=== PATIENT | female | born 1955 | race Caucasian/White ===

== ENCOUNTER 2019-11-25 07:42 | Day surgery (SDC) | payer OTHER, MEDICARE ==
[2019-11-23 12:56] VITALS: BMI 29.6
[~2019-11-25 07:42] MED LIST: LACTATED RINGERS 1,000 ML IV SCH; LIDOCAINE 1% (10MG/ML) FOR IV START INTRADERMA PRN
[2019-11-25 08:02] VITALS: TEMP 96.6
[2019-11-25 08:15] LABS: Glucose,Whole Blood 122 mg/dL (75-99)
[2019-11-25] MEDS ORDERED: PROPOFOL 10 MG/ML 20 ML VIAL IV ONE (08:25)
--- NOTE | 2019-11-25 08:25 | P.GSHP ---
History of Present Illness H&P Date: 11/25/19 CHIEF COMPLAINT: Colon screen HISTORY OF PRESENT ILLNESS: The patient is a 64-year-old female who presents for colon screen. Lower endoscopy was offered for further evaluation and management. PAST MEDICAL HISTORY: Please see list. PAST SURGICAL HISTORY: Please see list. MEDICATIONS: Please see list. ALLERGIES: Please see list. SOCIAL HISTORY: No illicit drug use FAMILY HISTORY: No reports of Crohn disease or ulcerative colitis. REVIEW OF ORGAN SYSTEMS: CONSTITUTIONAL: No reports of fevers or chills. PHYSICAL EXAM: VITAL SIGNS: Stable GENERAL: Well-developed pleasant in no acute distress. HEENT: No scleral icterus. Extraocular movements grossly intact. Moist buccal mucosa. NECK: Supple without lymphadenopathy. CHEST: Unlabored respirations. Equal bilateral excursions. CARDIOVASCULAR: Regular rate and rhythm. Distal 2+ pulses. ABDOMEN: Soft, nontender, nondistended. MUSCULOSKELETAL: No clubbing, cyanosis, or edema. ASSESSMENT: 1. Colon screen. PLAN: 1. Recommend proceeding with a lower endoscopy Past Medical History Past Medical History: Cancer, Diabetes Mellitus, GERD/Reflux, Hyperlipidemia, Hypertension, Thyroid Disorder Additional Past Medical History / Comment(s): hx. breast cancer 6 yrs. ago w/surgery & radiation, hx. colon polyps, History of Any Multi-Drug Resistant Organisms: None Reported Past Surgical History: Breast Surgery, Cholecystectomy, Tonsillectomy Additional Past Surgical History / Comment(s): left breast lumpectomy, cyst removed from throat, cataracts removed Past Anesthesia/Blood Transfusion Reactions: No Reported Reaction Smoking Status: Current every day smoker Medications and Allergies Home Medications Medication Instructions Recorded Confirmed Type Alendronate Sodium [Fosamax] 70 mg PO JONES 11/23/19 11/23/19 History Anastrozole [Arimidex] 1 mg PO DAILY 11/23/19 11/23/19 History Aspirin 81 mg PO DAILY 11/23/19 11/23/19 History Levothyroxine Sodium [Synthroid] 112 mcg PO DAILY 11/23/19 11/23/19 History Lisinopril-Hctz 10-12.5 mg 1 tab PO DAILY 11/23/19 11/23/19 History [Zestoretic 10-12.5] Multivitamins, Thera [Multivitamin 1 tab PO DAILY 11/23/19 11/23/19 History (formulary)] Omeprazole [PriLOSEC] 20 mg PO AC-BRKFST 11/23/19 11/23/19 History PARoxetine [Paxil] 20 mg PO DAILY 11/23/19 11/23/19 History Simvastatin [Zocor] 20 mg PO HS 11/23/19 11/23/19 History metFORMIN HCL [Glucophage] 500 mg PO BID 11/23/19 11/23/19 History Allergies Allergy/AdvReac Type Severity Reaction Status Date / Time No Known Allergies Allergy Verified 11/23/19 12:43 Surgical - Exam Vital Signs Temp Pulse Resp BP Pulse Ox 96.6 F L 71 16 149/67 94 L 11/25/19 07:59 11/25/19 07:59 11/25/19 07:59 11/25/19 07:59 11/25/19 07:59 Results - Labs Abnormal Lab Results - Last 24 Hours (Table) 11/25/19 Range/Units 08:09 POC Glucose (mg/dL) 122 H (75-99) mg/dL
[2019-11-25 09:07] VITALS: BP 138/79; PULSE 78; RESP 18
--- NOTE | 2019-11-25 09:20 | P.PCN ---
Date of Procedure: 11/25/19 Description of Procedure: PREOPERATIVE DIAGNOSIS: Personal history of colon polyps Colonoscopy screening POSTOPERATIVE DIAGNOSIS: Personal history of colon polyps Colonoscopy screening Tubular adenoma descending colon Sigmoid diverticulosis Internal hemorrhoids, grade 2 OPERATION: Colonoscopy to the ileocecal valve and appendiceal orifice. Colonoscopy with multiple hot snare polypectomies SURGEON: Minoo Ruffin MD. ANESTHESIA: MAC. INDICATIONS: The patient is an 64-year-old female who presents personal history of colon polyps. Last colonoscopy over 5 years. Benefits and risks were described and informed consent was obtained. DESCRIPTION OF PROCEDURE: The patient had undergone Suprep. She had been brought into the operating room and laid in the left lateral decubitus position. After adequate intravenous sedation, the rectum was examined with 2% lidocaine jelly. The prostate was unremarkable. External hemorrhoids were encountered. The rectal tone was within normal limits. No lesions were palpated in the rectal vault. An Olympus colonoscope was advanced to the ascending colon due to severe redundancy of sigmoid colon. The prep was excellent. Sigmoid diverticulosis was encountered. Multiple colonic polyps were found and snare polypectomy. No evidence of focal colitis was found. Retroflexion of the scope demonstrated grade 2 internal hemorrhoids without active bleeding or inflammation. The colon was desufflated. The patient had tolerated the procedure well. Withdrawal time was over 6 minutes. FINDINGS: Aronchick preparation quality scale 1 (1-5) Internal hemorrhoids, grade 2 External hemorrhoids, grade 3. No arteriovenous malformations. Sigmoid diverticulosis Removal of 3 polyps: - Snare polypectomy 35 cm from the anal verge, 4 mm tubulovillous adenoma polyp, descending colon - Snare polypectomy 40 cm from the anal verge, 5 mm flat villous adenoma polyp, descending colon - Snare polypectomy 50 cm from the anal verge, 6 mm flat villous adenoma polyp, descending colon No focal colitis. RECOMMENDATIONS: Repeat colonoscopy in 2 years, 2021 Plan - Discharge Summary Discharge Rx Participant: No New Discharge Prescriptions: Continue Omeprazole [PriLOSEC] 20 mg PO AC-BRKFST metFORMIN HCL [Glucophage] 500 mg PO BID Simvastatin [Zocor] 20 mg PO HS Multivitamins, Thera [Multivitamin (formulary)] 1 tab PO DAILY Lisinopril-Hctz 10-12.5 mg [Zestoretic 10-12.5] 1 tab PO DAILY Aspirin 81 mg PO DAILY Anastrozole [Arimidex] 1 mg PO DAILY PARoxetine [Paxil] 20 mg PO DAILY Levothyroxine Sodium [Synthroid] 112 mcg PO DAILY Alendronate Sodium [Fosamax] 70 mg PO JONES Discharge Medication List Alendronate Sodium [Fosamax] 70 mg PO JONES 11/23/19 [History] Anastrozole [Arimidex] 1 mg PO DAILY 11/23/19 [History] Aspirin 81 mg PO DAILY 11/23/19 [History] Levothyroxine Sodium [Synthroid] 112 mcg PO DAILY 11/23/19 [History] Lisinopril-Hctz 10-12.5 mg [Zestoretic 10-12.5] 1 tab PO DAILY 11/23/19 [History] Multivitamins, Thera [Multivitamin (formulary)] 1 tab PO DAILY 11/23/19 [History] Omeprazole [PriLOSEC] 20 mg PO AC-BRKFST 11/23/19 [History] PARoxetine [Paxil] 20 mg PO DAILY 11/23/19 [History] Simvastatin [Zocor] 20 mg PO HS 11/23/19 [History] metFORMIN HCL [Glucophage] 500 mg PO BID 11/23/19 [History] Follow up Appointment(s)/Referral(s): Minoo Ruffin MD [STAFF PHYSICIAN] - As Needed Patient Instructions/Handouts: *Surgery [facility] - (Anesthesia) Endoscopy Discharge Instructions, Diverticulosis (DC), Colorectal Polyps (IP), Diverticulosis Diet (GEN), Colonoscopy (DC) Activity/Diet/Wound Care/Special Instructions: Next colonscopy in 2 years, 2021 Discharge Disposition: HOME SELF-CARE
== END 2019-11-25 09:28 | disposition home or self-care (01) ==
LOC: ORWHC2ENDO 07:42
PROVIDERS: ATTEND Surgery Plastic and Reconstructive Surgery
DX: Z12.11 Encounter for screening for malignant neoplasm of colon (principal); D12.4 Benign neoplasm of descending colon; K57.30 Diverticulosis of large intestine without perforation or abscess without bleeding; Z86.010 Personal history of colon polyps; K64.1 Second degree hemorrhoids; K64.4 Residual hemorrhoidal skin tags; I10 Essential (primary) hypertension; E11.9 Type 2 diabetes mellitus without complications; E78.5 Hyperlipidemia, unspecified; E07.9 Disorder of thyroid, unspecified; K21.9 Gastro-esophageal reflux disease without esophagitis; F17.210 Nicotine dependence, cigarettes, uncomplicated; F32.9 Major depressive disorder, single episode, unspecified; F41.9 Anxiety disorder, unspecified; Z79.83 Long term (current) use of bisphosphonates; Z79.890 Hormone replacement therapy; Z79.899 Other long term (current) drug therapy; Z79.84 Long term (current) use of oral hypoglycemic drugs; Z79.82 Long term (current) use of aspirin; Z85.3 Personal history of malignant neoplasm of breast; Z92.3 Personal history of irradiation; Z90.49 Acquired absence of other specified parts of digestive tract; Z90.89 Acquired absence of other organs; Z98.890 Other specified postprocedural states; Z98.49 Cataract extraction status, unspecified eye; Z98.51 Tubal ligation status
CPT/HCPCS: 88305; 45385; J2704